=== PATIENT | male | born 1955 | race Caucasian/White ===

== ENCOUNTER 2017-05-01 19:04 | Observation (INO) | payer MEDICAID ==
[~2017-05-01] VITALS: Ht 5954.8 cm; Wt 67.7 kg
[~2017-05-01 19:04] MED LIST: ALBU18HF2; BECL8.7A7; BISM-64 PO; CLON1TAB4 PO; CYCL-1 PO; DICY10CA88 PO; DIPH25CA83 PO; IBUP-1986 PO; MELO-100 PO; MILK200C4 PO; ONDA8TAB9 PO; PANT-47 PO; PANT20TA3 PO; RIVA20TA
[2017-05-01 20:48] LABS: BASOPHILS # (AUTO) 0.1 X10'3 (0-0.2); BASOPHILS % (AUTO) 0.8 % (0-1); EOSINOPHILS % (AUTO) 0.7 % (0-6); HEMOGLOBIN 16.4 g/dl (14.0-17.9); LYMPHOCYTES # (AUTO) 2.9 X10'3 (1.1-4.8); LYMPHOCYTES % (AUTO) 41.6 % (21-51); MEAN CORPUSCULAR HEMOGLOBIN 31.2 PG (27.0-31.0); MEAN CORPUSCULAR HGB CONC 34.3 % (33.0-36.5); MEAN CORPUSCULAR VOLUME 91.1 FL (78-98); MEAN PLATELET VOLUME 6.8 FL (7.4-10.4); MONOCYTES # (AUTO) 0.5 X10'3 (0-0.9); MONOCYTES % (AUTO) 7.2 % (2-12); NEUTROPHILS # (AUTO) 3.4 X10'3 (1.8-7.7); NEUTROPHILS % (AUTO) 49.7 % (42-75); PLATELET COUNT 216 X10'3 (140-440); RED BLOOD COUNT 5.27 X10'6 (4.70-6.10); RED CELL DISTRIBUTION WIDTH 14.8 % (11.5-14.5); WHITE BLOOD COUNT 6.9 X10'3 (4.5-11.0)
[2017-05-01 21:01] LABS: INR 1.1 INR; PARTIAL THROMBOPLASTIN TIME 26 SECONDS (22-32); PROTHROMBIN TIME 11.1 SECONDS (9.0-12.0)
[2017-05-01 21:06] LABS: ALANINE AMINOTRANSFERASE 24 U/L (12-78); ALBUMIN 3.9 G/DL (3.4-5.0); ALBUMIN/GLOBULIN RATIO 1.1 (1.1-1.5); ALKALINE PHOSPHATASE 114 IU/L (46-116); ANION GAP 11 (8-16); ASPARTATE AMINO TRANSFERASE 23 U/L (10-37); BILIRUBIN,TOTAL 0.8 MG/DL (0.1-1.0); BLOOD UREA NITROGEN 10 MG/DL (7-18); BUN/CREATININE RATIO 10.6 (5.4-32.0); CHLORIDE 107 MMOL/L (99-107); CREATININE 0.94 MG/DL (0.60-1.10); ETHANOL < 0.010 GM/DL (0.0-0.010); GLUCOSE 104 MG/DL (70-104); MAGNESIUM 2.3 MG/DL (1.5-2.4); POTASSIUM 3.2 MMOL/L (3.5-5.1); SODIUM 144 MMOL/L (135-145); TOTAL CARBON DIOXIDE 25.6 MMOL/L (24-32); TOTAL PROTEIN 7.5 G/DL (6.4-8.2); eGFR 81 ML/MIN
[2017-05-01] MEDS ORDERED: morphine 4 MG/ML inj SYRINge IV ONE ×4 (21:30→22:25)
[2017-05-01 21:55] LABS: CLARITY,URINE CLEAR (Clear); COLOR,URINE AMBER (Yellow); GLUCOSE, URINE NEGATIVE (Neg); KETONES,URINE TRACE mg/dl (Neg); LEUKOCYTE ESTERASE ,URINE NEGATIVE (Neg); NITRITES, URINE NEGATIVE (Neg); OCCULT BLOOD,URINE NEGATIVE (Neg); PROTEIN,URINE NEGATIVE (Neg)
[2017-05-01 21:56] LABS: UA COLLECTION TYPE CLN CATCH MIDSTREAM
[2017-05-01 22:05] LABS: URINE AMPHETAMINE SCREEN NEGATIVE (Neg); URINE BARBITUATE SCREEN NEGATIVE (Neg); URINE BENZODIAZEPINES SCREEN NEGATIVE (Neg); URINE CANNABINOID SCREEN NEGATIVE (Neg); URINE COCAINE SCREEN NEGATIVE (Neg); URINE METHADONE SCREEN NEGATIVE (Neg); URINE OPIATE SCREEN NEGATIVE (Neg); URINE PHENCYCLIDINE SCREEN NEGATIVE (Neg)
[2017-05-01] MEDS ORDERED: potassium Cl 20 mEq SR tablet PO ONE (23:40)
[2017-05-02] MEDS ORDERED: HYDR-3686 PO (00:50)
[2017-05-02] MEDS ORDERED: ESCI5TAB PO (00:50)
[2017-05-02] MEDS ORDERED: clonazePAM 1mg tablet PO ONE (01:30)
[2017-05-02] MEDS ORDERED: ondansetron/PF 4mg/2ml inj IV PRN (02:10)
[2017-05-02] MEDS ORDERED: potassium Cl 20 mEq SR tablet PO PRN ×2 (02:10)
[2017-05-02] MEDS ORDERED: potassium Cl 40MEQ/NS 500ml 500 ML IV PRN ×2 (02:10)
[2017-05-02] MEDS ORDERED: acetaminophen 325mg tablet PO PRN (02:10)
[2017-05-02] MEDS ORDERED: HYDROcodone/acetaminophen 5mg/325mg tablet PO PRN (02:10)
[2017-05-02] MEDS ORDERED: cyclobenzaprine 10mg tablet PO STA (03:07)
[2017-05-02] MEDS: HYDROmorphone 2mg tablet PO PRN ×3 (03:12→14:53)
[2017-05-02] MEDS ORDERED: LORazepam 2 mg/ml vial IV ONE (04:55)
[2017-05-02] MEDS ORDERED: cyclobenzaprine 10mg tablet PO SCH (08:00)
[2017-05-02] MEDS ORDERED: K and/or MAG REPLACEMENT MC SCH (08:00)
[2017-05-02] MEDS ORDERED: CITALOpram 10mg tablet PO SCH (08:00)
[2017-05-02] MEDS ORDERED: pantoprazole 40mg Tablet.DR PO SCH (08:00)
[2017-05-02 08:36] LABS: BASOPHILS # (AUTO) 0.1 X10'3 (0-0.2); EOSINOPHILS # (AUTO) 0.1 X10'3 (0-0.9); EOSINOPHILS % (AUTO) 1.9 % (0-6); HEMATOCRIT 43.5 % (42.0-52.0); HEMOGLOBIN 15.2 g/dl (14.0-17.9); LYMPHOCYTES # (AUTO) 2.7 X10'3 (1.1-4.8); LYMPHOCYTES % (AUTO) 39.2 % (21-51); MEAN CORPUSCULAR HEMOGLOBIN 31.9 PG (27.0-31.0); MEAN CORPUSCULAR VOLUME 91.2 FL (78-98); MEAN PLATELET VOLUME 6.8 FL (7.4-10.4); MONOCYTES # (AUTO) 0.6 X10'3 (0-0.9); NEUTROPHILS # (AUTO) 3.5 X10'3 (1.8-7.7); NEUTROPHILS % (AUTO) 49.9 % (42-75); PLATELET COUNT 184 X10'3 (140-440); RED BLOOD COUNT 4.77 X10'6 (4.70-6.10); RED CELL DISTRIBUTION WIDTH 14.8 % (11.5-14.5)
[2017-05-02] MEDS: clonazePAM 1mg tablet PO SCH ×2 (08:41→14:40)
[2017-05-02 08:50] LABS: ALBUMIN 3.5 G/DL (3.4-5.0); ANION GAP 9 (8-16); BLOOD UREA NITROGEN 14 MG/DL (7-18); BUN/CREATININE RATIO 13.9 (5.4-32.0); CALCIUM 8.7 MG/DL (8.5-10.1); CHLORIDE 105 MMOL/L (99-107); CREATININE 1.01 MG/DL (0.60-1.10); GLUCOSE 102 MG/DL (70-104); POTASSIUM 3.4 MMOL/L (3.5-5.1); SODIUM 141 MMOL/L (135-145); TOTAL CARBON DIOXIDE 27.3 MMOL/L (24-32); eGFR 75 ML/MIN
[2017-05-02] MEDS ORDERED: atorvastatin 20mg tablet PO SCH (13:05)
[2017-05-02] MEDS ORDERED: aspirin 81mg tab.chew PO ONE (13:05)
[2017-05-02] MEDS ORDERED: morphine 4 MG/ML inj SYRINge IV ONE (16:35)
[2017-05-02 16:40] VITALS: BP 110/70
[2017-05-02] MEDS ORDERED: hydrOXYzine 25 MG tablet PO SCH (21:00)
== END 2017-05-02 16:40 | disposition short-term general hospital (02) ==
LOC: ER 19:05 → ED HOLD 05-02 02:09 → CANBEDREQ 05-02 13:36
PROVIDERS: ADMIT Family Medicine; ATTEND Family Medicine
DX: R55 Syncope and collapse (principal); E87.6 Hypokalemia; J44.9 Chronic obstructive pulmonary disease, unspecified; K21.9 Gastro-esophageal reflux disease without esophagitis; M81.0 Age-related osteoporosis without current pathological fracture; K58.9 Irritable bowel syndrome, unspecified; I35.1 Nonrheumatic aortic (valve) insufficiency; M54.2 Cervicalgia; Z86.711 Personal history of pulmonary embolism; Z86.718 Personal history of other venous thrombosis and embolism; Z87.891 Personal history of nicotine dependence; Z98.1 Arthrodesis status; Z86.59 Personal history of other mental and behavioral disorders; Z86.19 Personal history of other infectious and parasitic diseases
CPT/HCPCS: 36415; 70450; 70544; 70551; 71045; 72125; 72141; 80048; 80053; 80305; 80320; 81003; 83735; 84484; 85025; 85610; 85730; 93306; 96374; 96375; 96376; 99285; G0378; J2060; J2270; J2405; L0172

== ENCOUNTER 2017-05-30 12:46 | Emergency (ER) | payer MEDICAID ==
[~2017-05-30] VITALS: Ht 180.3 cm; Wt 67.3 kg
[~2017-05-30 12:46] MED LIST changes: -ALBU18HF2; -BECL8.7A7; -DICY10CA88 PO; +ESCI5TAB PO; +HYDR-3686 PO; -PANT20TA3 PO; -RIVA20TA
[2017-05-30] MEDS ORDERED: normal saline 1000ML IV soln IVB ONE (12:50)
[2017-05-30 13:37] LABS: BASOPHILS # (AUTO) 0.1 X10'3 (0-0.2); BASOPHILS % (AUTO) 0.6 % (0-1); EOSINOPHILS # (AUTO) 0.1 X10'3 (0-0.9); EOSINOPHILS % (AUTO) 0.7 % (0-6); HEMATOCRIT 50.5 % (42.0-52.0); LYMPHOCYTES # (AUTO) 2.7 X10'3 (1.1-4.8); LYMPHOCYTES % (AUTO) 27.9 % (21-51); MEAN CORPUSCULAR HEMOGLOBIN 31.2 PG (27.0-31.0); MEAN CORPUSCULAR HGB CONC 33.6 % (33.0-36.5); MEAN CORPUSCULAR VOLUME 92.7 FL (78-98); MEAN PLATELET VOLUME 7.2 FL (7.4-10.4); MONOCYTES # (AUTO) 0.7 X10'3 (0-0.9); MONOCYTES % (AUTO) 7.6 % (2-12); NEUTROPHILS % (AUTO) 63.2 % (42-75); PLATELET COUNT 178 X10'3 (140-440); RED BLOOD COUNT 5.46 X10'6 (4.70-6.10); WHITE BLOOD COUNT 9.5 X10'3 (4.5-11.0)
[2017-05-30 13:45] LABS: ALANINE AMINOTRANSFERASE 25 U/L (12-78); ALBUMIN 3.9 G/DL (3.4-5.0); ALBUMIN/GLOBULIN RATIO 1.1 (1.1-1.5); ALKALINE PHOSPHATASE 115 IU/L (46-116); ANION GAP 14 (8-16); ASPARTATE AMINO TRANSFERASE 21 U/L (10-37); BILIRUBIN,TOTAL 0.9 MG/DL (0.1-1.0); BLOOD UREA NITROGEN 9 MG/DL (7-18); CALCIUM 9.1 MG/DL (8.5-10.1); CHLORIDE 104 MMOL/L (99-107); ETHANOL < 0.010 GM/DL (0.0-0.010); GLUCOSE 135 MG/DL (70-104); POTASSIUM 3.4 MMOL/L (3.5-5.1); SODIUM 140 MMOL/L (135-145); TOTAL PROTEIN 7.6 G/DL (6.4-8.2); eGFR 86 ML/MIN
[2017-05-30] MEDS ORDERED: cyclobenzaprine 10mg tablet PO ONE (13:50)
[2017-05-30] MEDS ORDERED: oxyCODONE/APAP 10/325mg tablet PO ONE (13:50)
[2017-05-30 14:11] VITALS: BP 106/88
== END 2017-05-30 14:22 | disposition home or self-care (01) ==
LOC: ER 12:48
DX: E86.0 Dehydration (principal); R55 Syncope and collapse; F11.10 Opioid abuse, uncomplicated; R10.9 Unspecified abdominal pain; Z88.5 Allergy status to narcotic agent; Z88.8 Allergy status to other drugs, medicaments and biological substances; Z79.899 Other long term (current) drug therapy; J44.9 Chronic obstructive pulmonary disease, unspecified; G89.29 Other chronic pain; M19.90 Unspecified osteoarthritis, unspecified site; Z98.890 Other specified postprocedural states
CPT/HCPCS: 36415; 71045; 80053; 80320; 84443; 85025; 93005; 96360; 99285; J7030

== ENCOUNTER 2017-09-24 12:10 | Emergency (ER) | payer MEDICAID ==
[~2017-09-24] VITALS: Ht 182.9 cm; Wt 57.0 kg
[~2017-09-24 12:10] MED LIST changes: +CLON-371 PO; -CLON1TAB4 PO
[2017-09-24] MEDS ORDERED: ketorolac trometh inj. 60 MG/2 ML VIAL IM ONE (13:00)
[2017-09-24] MEDS ORDERED: IBUP-1984 PO (13:02)
[2017-09-24 13:37] VITALS: BP 125/68
== END 2017-09-24 13:45 | disposition home or self-care (01) ==
LOC: ER 12:11
DX: G89.29 Other chronic pain (principal); M54.2 Cervicalgia; R51 Headache; F41.9 Anxiety disorder, unspecified; J44.9 Chronic obstructive pulmonary disease, unspecified; M19.90 Unspecified osteoarthritis, unspecified site; Z86.711 Personal history of pulmonary embolism; Z86.718 Personal history of other venous thrombosis and embolism; Z88.5 Allergy status to narcotic agent; Z88.8 Allergy status to other drugs, medicaments and biological substances; Z86.19 Personal history of other infectious and parasitic diseases
CPT/HCPCS: 96372; 99283; J1885

== ENCOUNTER → 2017-12-20 | Emergency (ER) | payer MEDICAID ==
[~2017-12-20] VITALS: Ht 182.9 cm; Wt 75.0 kg
[2017-12-20 00:48] VITALS: BP 102/60
== END | disposition left against medical advice (07) ==
LOC: ER 00:37
DX: M54.2 Cervicalgia (principal); R51 Headache; Z53.21 Procedure and treatment not carried out due to patient leaving prior to being seen by health care provider

== ENCOUNTER 2018-03-03 16:56 | Emergency (ER) | payer MEDICAID, OTHER ==
[~2018-03-03] VITALS: Ht 182.9 cm; Wt 78.0 kg
[2018-03-03] MEDS ORDERED: morphine 4 MG/ML inj SYRINge IM ONE ×2 (17:55→19:55)
[2018-03-03] MEDS ORDERED: ipratropium/albuterol 3ml nebule NEB ONE (17:55)
[2018-03-03 18:33] LABS: BASOPHILS % (AUTO) 0.7 % (0-1); EOSINOPHILS # (AUTO) 0.2 X10'3 (0-0.9); HEMOGLOBIN 14.2 g/dl (14.0-17.9); LYMPHOCYTES # (AUTO) 2.6 X10'3 (1.1-4.8); LYMPHOCYTES % (AUTO) 42.7 % (21-51); MEAN CORPUSCULAR HEMOGLOBIN 33.6 PG (27.0-31.0); MEAN CORPUSCULAR HGB CONC 34.6 % (33.0-36.5); MEAN CORPUSCULAR VOLUME 97.3 FL (78-98); MEAN PLATELET VOLUME 7.6 FL (7.4-10.4); MONOCYTES # (AUTO) 0.7 X10'3 (0-0.9); MONOCYTES % (AUTO) 11.5 % (2-12); NEUTROPHILS # (AUTO) 2.6 X10'3 (1.8-7.7); NEUTROPHILS % (AUTO) 42.1 % (42-75); PLATELET COUNT 122 X10'3 (140-440); RED BLOOD COUNT 4.22 X10'6 (4.70-6.10); RED CELL DISTRIBUTION WIDTH 14.2 % (11.5-14.5); WHITE BLOOD COUNT 6.1 X10'3 (4.5-11.0)
[2018-03-03 18:40] LABS: ALANINE AMINOTRANSFERASE 18 U/L (12-78); ALBUMIN 3.4 G/DL (3.4-5.0); ALBUMIN/GLOBULIN RATIO 1.1 (1.1-1.5); ALKALINE PHOSPHATASE 142 IU/L (46-116); ANION GAP 10 (8-16); ASPARTATE AMINO TRANSFERASE 21 U/L (10-37); BILIRUBIN,TOTAL 0.3 MG/DL (0.1-1.0); BLOOD UREA NITROGEN 9 MG/DL (7-18); BUN/CREATININE RATIO 9.7 (5.4-32.0); CHLORIDE 110 MMOL/L (99-107); CREATININE 0.93 MG/DL (0.60-1.10); GLUCOSE 83 MG/DL (70-104); POTASSIUM 3.4 MMOL/L (3.5-5.1); SODIUM 146 MMOL/L (135-145); TOTAL CARBON DIOXIDE 26.5 MMOL/L (24-32); TOTAL PROTEIN 6.5 G/DL (6.4-8.2); eGFR 82 ML/MIN
[2018-03-03 18:41] LABS: ETHANOL < 0.010 GM/DL (0.0-0.010)
[2018-03-03] MEDS ORDERED: HYDROcodone/acetaminophen 10/325mg tab PO ONE (19:30)
--- NOTE | 2018-03-03 19:30 | NUR ---
Pt c/o 11/16 pain, chronic. notified. Med rec addressed.
[2018-03-03] MEDS ORDERED: cyclobenzaprine 10mg tablet PO ONE (19:55)
[2018-03-03] MEDS: ketorolac tromethamine 15mg/ml inj. IM ONE ×2 (20:25→20:41)
--- NOTE | 2018-03-03 20:30 | NUR ---
Pt given sandwich, juice, applesauce. Consumed 100%
--- NOTE | 2018-03-03 23:30 | NUR ---
Pt tried to void in urinal and missed, wetting his clothes, bedding. Pt given dry sheets and clothes. Urine collected for UA. PT now resting quietly.
[2018-03-04 00:08] LABS: URINE AMPHETAMINE SCREEN NEGATIVE (Neg); URINE BARBITUATE SCREEN NEGATIVE (Neg); URINE BENZODIAZEPINES SCREEN POSITIVE (Neg); URINE CANNABINOID SCREEN NEGATIVE (Neg); URINE COCAINE SCREEN NEGATIVE (Neg); URINE METHADONE SCREEN NEGATIVE (Neg); URINE OPIATE SCREEN POSITIVE (Neg); URINE PHENCYCLIDINE SCREEN NEGATIVE (Neg)
--- NOTE | 2018-03-04 01:30 | NUR ---
Pl sleeping in bed on his back. Respirations even and unlabored.
--- NOTE | 2018-03-04 02:00 | NUR ---
Pt request for medications for pain. SOC consult initiated
--- NOTE | 2018-03-04 03:15 | NUR ---
Pl sleeping in bed on his back. Respirations even and unlabored.
--- NOTE | 2018-03-04 04:30 | NUR ---
Pt again made request for 'pain shot'. Reoriented him to medications available for pain
--- NOTE | 2018-03-04 05:34 | NUR ---
Pt talking to SOC MD. Pt another request for 'pain shot'. Pt again told that Motrin or Tylenol was available.
--- NOTE | 2018-03-04 07:12 | NUR ---
PT CO BACK PAIN, ASKING FOR PAIN MEDS. DR OFFERED ACETAMINOPHEN, PT DECLINED SAYING HE CANNOT TAKE "FILLERS."
[2018-03-04] MEDS ORDERED: CYCL10TA26 PO (07:32)
[2018-03-04] MEDS ORDERED: PANT40SU2 PO (07:32)
[2018-03-04] MEDS ORDERED: bismuth subsalicylate 262mg chew tablet PO PRN (07:45)
[2018-03-04] MEDS: clonazePAM 1mg tablet PO SCH ×4 (08:19→20:18)
[2018-03-04] MEDS: CITALOpram 10mg tablet PO SCH (08:19)
--- NOTE | 2018-03-04 09:35 | NUR ---
pt ate breakfast and asked for more food. pt is pleasant and cooperative.
[2018-03-04] MEDS: cyclobenzaprine 10mg tablet PO PRN ×2 (12:44→20:18)
--- NOTE | 2018-03-04 12:59 | NUR ---
pt co pain in back and neck, requesting pain meds stronger than tylenol. pt was given snacks, pt appreciative, cooperative, pleasant.
[2018-03-04] MEDS ORDERED: acetaminophen 325mg tablet PO ONE (13:25)
--- NOTE | 2018-03-04 13:42 | NUR ---
AMBULATORY TO ER #[id number] OVERFLOW-ACCOMPANIED BY SECURITY AND RN. REPORT FROM TYLER VILLALBA. PATIENT MADE SUICIDE ATTEMPT VIA ASPHYXIATION PRIOR TO ARRIVAL. ALERT AND COOPERATIVE. C/O CHRONIC BACK PAIN AND WAS MEDICATED EARLIER WITH TYLENOL.
--- NOTE | 2018-03-04 18:30 | NUR ---
Report rec'd, care assumed. Patient is sitting up eating dinner.
--- NOTE | 2018-03-04 19:23 | NUR ---
Laying in bed, awake, denies needs currently. Will continue to monitor.
[2018-03-04] MEDS: HYDROcodone/acetaminophen 5mg/325mg tablet PO PRN (20:18)
[2018-03-04] MEDS: hydrOXYzine 25 MG tablet PO SCH (20:18)
[2018-03-04] MEDS ORDERED: nicotine 7mg patch - 24hr TD ONE (20:20)
--- NOTE | 2018-03-04 20:21 | NUR ---
Pt requesting nicotine patch, ERP informed, orders rec'd.
--- NOTE | 2018-03-04 21:04 | NUR ---
Up to BRP, requesting analgesic, informed that he just rec'd one, states satisfaction with that, assisted with non-medication modalities to help with pain relief
--- NOTE | 2018-03-04 22:10 | NUR ---
Resting in bed with eyes closed, appearing to sleep without new concerns or issues. Will continue to monitor.
--- NOTE | 2018-03-04 22:24 | NUR ---
Awoke with diaphoresis and "dizziness", accu check 136...spoke with patient regarding this appear most likely associated with nicotine patch, especially considering the very little patient admits to smokeing. Patient agrees, and patch removed.
--- NOTE | 2018-03-04 22:39 | NUR ---
Rec'd call from [facility] in [place], questions answered. [facility] and will call fro updates as they come.
--- NOTE | 2018-03-04 23:09 | NUR ---
Resting in bed with eyes closed, appearing to sleep without new concerns or issues. Will continue to monitor.
--- NOTE | 2018-03-05 00:44 | NUR ---
Resting in bed, eyes closed, appearing to sleep. No new issues or concerns noted. Will continue to monitor for changes.
--- NOTE | 2018-03-05 01:35 | NUR ---
Appearing to sleep, in bed with eyes closed, resp are even and unlabored. No new concerns or issues noted, will continue to monitor.
--- NOTE | 2018-03-05 02:19 | NUR ---
Appearing to sleep, in bed with eyes closed, resp are even and unlabored. No new concerns or issues noted, will continue to monitor.
--- NOTE | 2018-03-05 03:59 | NUR ---
Up to BRP, no needs voiced, back to bed without issues. Will continue to monitor.
--- NOTE | 2018-03-05 07:04 | NUR ---
Assumed care, report received from Steven. Patient up to the bathroom. Now lying awake in bed. No distress noted.
[2018-03-05] MEDS: CITALOpram 10mg tablet PO SCH (07:53)
[2018-03-05] MEDS: pantoprazole 40mg Tablet.DR PO SCH (07:53)
[2018-03-05] MEDS: clonazePAM 1mg tablet PO SCH ×4 (07:53→21:20)
[2018-03-05] MEDS: nicotine 7mg patch - 24hr TD SCH (07:54)
[2018-03-05] MEDS: HYDROcodone/acetaminophen 5mg/325mg tablet PO PRN ×3 (08:28→21:22)
[2018-03-05] MEDS: cyclobenzaprine 10mg tablet PO PRN (08:28)
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
--- NOTE | 2018-03-05 13:57 | NUR ---
Patient complaining of pain. Requesting oxycontin. Notified he would be getting Cabins 5/325 q6h. Talking with friend on the phone. Overheard him state that he is having visual hallucinations, but denied to RN earlier.
--- NOTE | 2018-03-05 16:12 | NUR ---
Patient sleeping comfortably in bed. No S/S of distress.
--- NOTE | 2018-03-05 19:30 | NUR ---
Patient is awake, medication compliant. He denies S/I at this time. Patient states recent stress with family. Attempt at S/I by CO poisoning in garage with car running. Patient had garage door shut, he didn't pipe exhaust into car. Patient awoke, felt hungry, went to kitchen and ate. Patient felt regret about suicide attempt and went to [facility] He was transfered here for eval and placement.
[2018-03-05] MEDS: hydrOXYzine 25 MG tablet PO SCH (21:20)
--- NOTE | 2018-03-06 04:30 | NUR ---
This patient was up to the bathroom. He ambulates without problem. No distress.
--- NOTE | 2018-03-06 07:54 | NUR ---
Rec call from [facility], they are full and unable to accept patient. Malini carvajal made aware.
[2018-03-06] MEDS: clonazePAM 1mg tablet PO SCH ×4 (08:16→20:51)
[2018-03-06] MEDS: pantoprazole 40mg Tablet.DR PO SCH (08:16)
[2018-03-06] MEDS: nicotine 7mg patch - 24hr TD SCH (08:16)
[2018-03-06] MEDS: CITALOpram 10mg tablet PO SCH (08:17)
[2018-03-06] MEDS: HYDROcodone/acetaminophen 5mg/325mg tablet PO PRN ×3 (08:21→19:39)
[2018-03-06] MEDS: lactobacillus rhamnosus 10,000 MMU CELLS/CAPSULE PO SCH (20:51)
[2018-03-06] MEDS: hydrOXYzine 25 MG tablet PO SCH (20:52)
[2018-03-06] MEDS ORDERED: polyethylene glycol 3350 17gm powd pack PO PRN (22:00)
--- NOTE | 2018-03-07 06:00 | NUR ---
Awake at change of shift. States he is in pain in his arm, neck and back. Requested pain medication. Given [place] and Flexeril as ordered.
[2018-03-07] MEDS: cyclobenzaprine 10mg tablet PO PRN ×2 (06:31→16:52)
[2018-03-07] MEDS: pantoprazole 40mg Tablet.DR PO SCH (06:31)
[2018-03-07] MEDS: HYDROcodone/acetaminophen 5mg/325mg tablet PO PRN ×3 (06:32→16:52)
[2018-03-07] MEDS: lactobacillus rhamnosus 10,000 MMU CELLS/CAPSULE PO SCH (07:16)
[2018-03-07] MEDS: clonazePAM 1mg tablet PO SCH ×3 (07:16→16:52)
[2018-03-07] MEDS: CITALOpram 10mg tablet PO SCH (07:18)
[2018-03-07] MEDS: nicotine 7mg patch - 24hr TD SCH (08:00)
--- NOTE | 2018-03-07 08:30 | NUR ---
Served breakfast. Ate 100% of his meal. Asked for seconds. Provided with additional food. Up ad luan to the bathroom. Gait steady.
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
--- NOTE | 2018-03-07 16:30 | NUR ---
Call received from [facility]. Patient has been accepted by [facility]. Rig Mechanic will be here at approximately 1700. Patient informed and delighted with this information. Patient called his family and notified them of his move to [place].
--- NOTE | 2018-03-07 17:40 | NUR ---
Stockroom Supervisor from [facility] here to lease picker patient and transport him to [facility].
[2018-03-07 18:14] VITALS: BP 127/80
== END 2018-03-07 17:40 ==
LOC: ER 16:56
DX: R45.851 Suicidal ideations (principal); J44.9 Chronic obstructive pulmonary disease, unspecified; F41.9 Anxiety disorder, unspecified; Z86.69 Personal history of other diseases of the nervous system and sense organs; Z86.711 Personal history of pulmonary embolism; Z86.19 Personal history of other infectious and parasitic diseases; Z86.718 Personal history of other venous thrombosis and embolism; Z98.890 Other specified postprocedural states; Z88.5 Allergy status to narcotic agent; Z88.8 Allergy status to other drugs, medicaments and biological substances; Z79.899 Other long term (current) drug therapy
CPT/HCPCS: 36415; 71045; 80053; 80305; 80320; 82948; 85025; 94640; 94760; 96372; 99285; J1885; J2270; Q0177

== ENCOUNTER 2018-03-31 18:37 | Emergency (ER) | payer MEDICAID, OTHER ==
[~2018-03-31] VITALS: Ht 179.1 cm; Wt 70.0 kg
[~2018-03-31 18:37] MED LIST changes: -CYCL-1 PO; +CYCL10TA26 PO; -DIPH25CA83 PO; -IBUP-1986 PO; -MELO-100 PO; -MILK200C4 PO; -ONDA8TAB9 PO; -PANT-47 PO; +PANT40SU2 PO
[2018-03-31 20:35] LABS: BASOPHILS % (AUTO) 0.5 % (0-1); EOSINOPHILS % (AUTO) 0.4 % (0-6); HEMATOCRIT 49.3 % (42.0-52.0); HEMOGLOBIN 17.1 g/dl (14.0-17.9); LYMPHOCYTES # (AUTO) 1.8 X10'3 (1.1-4.8); LYMPHOCYTES % (AUTO) 28.4 % (21-51); MEAN CORPUSCULAR HEMOGLOBIN 33.2 PG (27.0-31.0); MEAN CORPUSCULAR HGB CONC 34.7 g/dL (33.0-36.5); MEAN CORPUSCULAR VOLUME 95.6 FL (78-98); MEAN PLATELET VOLUME 7.2 FL (7.4-10.4); MONOCYTES # (AUTO) 0.8 X10'3 (0-0.9); MONOCYTES % (AUTO) 11.8 % (2-12); NEUTROPHILS # (AUTO) 3.8 X10'3 (1.8-7.7); NEUTROPHILS % (AUTO) 58.9 % (42-75); PLATELET COUNT 165 X10'3 (140-440); RED BLOOD COUNT 5.16 X10'6 (4.70-6.10); RED CELL DISTRIBUTION WIDTH 13.5 % (11.5-14.5); WHITE BLOOD COUNT 6.4 X10'3 (4.5-11.0)
[2018-03-31 20:43] LABS: ALANINE AMINOTRANSFERASE 27 U/L (12-78); ALBUMIN 4.1 G/DL (3.4-5.0); ALBUMIN/GLOBULIN RATIO 1.1 (1.1-1.5); ALKALINE PHOSPHATASE 104 IU/L (46-116); ANION GAP 10 (8-16); ASPARTATE AMINO TRANSFERASE 35 U/L (10-37); BLOOD UREA NITROGEN 11 MG/DL (7-18); BUN/CREATININE RATIO 12.8 (5.4-32.0); CHLORIDE 104 MMOL/L (99-107); CREATININE 0.86 MG/DL (0.60-1.10); GLUCOSE 117 MG/DL (70-104); POTASSIUM 3.1 MMOL/L (3.5-5.1); SODIUM 141 MMOL/L (135-145); TOTAL CARBON DIOXIDE 26.8 MMOL/L (24-32); TOTAL PROTEIN 7.8 G/DL (6.4-8.2); eGFR 90 ML/MIN
[2018-03-31 20:48] LABS: ETHANOL < 0.010 GM/DL (0.0-0.010)
[2018-03-31] MEDS ORDERED: potassium chloride 10mEq CAPSULE.SA PO SCH (22:30)
[2018-03-31] MEDS: potassium chloride 10mEq ER tablet PO SCH (22:38)
[2018-04-01 00:22] LABS: URINE AMPHETAMINE SCREEN NEGATIVE (Neg); URINE BARBITUATE SCREEN NEGATIVE (Neg); URINE BENZODIAZEPINES SCREEN NEGATIVE (Neg); URINE CANNABINOID SCREEN POSITIVE (Neg); URINE COCAINE SCREEN NEGATIVE (Neg); URINE METHADONE SCREEN NEGATIVE (Neg); URINE OPIATE SCREEN POSITIVE (Neg); URINE PHENCYCLIDINE SCREEN NEGATIVE (Neg)
[2018-04-01] MEDS ORDERED: cyclobenzaprine 10mg tablet PO ONE (00:25)
[2018-04-01] MEDS ORDERED: hydrOXYzine 25 MG tablet PO ONE (00:25)
[2018-04-01] MEDS ORDERED: clonazePAM 1mg tablet PO ONE ×2 (00:25→12:40)
--- NOTE | 2018-04-01 06:11 | NUR ---
FAXED PACKET TO [facility]
--- NOTE | 2018-04-01 09:00 | NUR ---
PT REFUSED TO TAKE MEDICATION FROM BOX OFFICE MANAGER BUT DID TAKE IT FROM ANOTHER NURSE THAT IS MALE.
[2018-04-01] MEDS: citalopram 20mg tablet PO SCH (09:05)
--- NOTE | 2018-04-01 12:30 | NUR ---
PT HAD A YELLING OUTBURST WITH HYDROSTATIC TUBING TESTER. STATED THAT HYDROSTATIC TUBING TESTER HAS NOT BEEN IN TO SEE HIM NOT ONCE. ATTEMPTED TO TALK TO THE PT ABOUT HOW I WAS IN HIS ROOM EARLIER BUT HE INSISTED HYDROSTATIC TUBING TESTER WAS NOT. PT HAD INCREASED AGITATION AND WANTED HIS KLONOPIN TO HELP CALM HIM DOWN. MD ORDERED AND MED GIVEN. PT QUIETLY RESTING IN BED AFTERWARDS
--- NOTE | 2018-04-01 15:48 | NUR ---
PT RESTING QUIETLY IN BED, NO SIGNS OF DISTRESS NOTED
--- NOTE | 2018-04-01 17:05 | NUR ---
PT RESTING QUIETLY IN BED, NO SIGNS OF DISTRESS NOTED.
[2018-04-01] MEDS ORDERED: traMADol 50MG tablet PO ONE (19:05)
[2018-04-01] MEDS ORDERED: bismuth subsalicylate 262mg chew tablet PO PRN (21:40)
[2018-04-01] MEDS: clonazePAM 1mg tablet PO SCH (21:50)
[2018-04-01] MEDS: hydrOXYzine 25 MG tablet PO SCH (21:50)
[2018-04-01] MEDS: potassium chloride 10mEq ER tablet PO SCH (22:35)
--- NOTE | 2018-04-01 23:00 | NUR ---
pt sleeping, rr 16 even and unlabored. no signs of any acute distress.
--- NOTE | 2018-04-02 02:00 | NUR ---
PT RESTING COMFORTABLY ON HIS BACK. NO SIGNS OF DISTRESS NOTED. WILL CONTINUE TO MONITOR.
--- NOTE | 2018-04-02 06:00 | NUR ---
PT RESTING COMFORTABLY ON HIS BACK. NO SIGNS OF DISTRESS NOTED. WILL CONTINUE TO MONITOR.
[2018-04-02] MEDS: pantoprazole 40mg Tablet.DR PO SCH (07:57)
[2018-04-02] MEDS: clonazePAM 1mg tablet PO SCH ×4 (07:58→20:17)
[2018-04-02] MEDS: citalopram 20mg tablet PO SCH (07:58)
[2018-04-02] MEDS ORDERED: traMADol 50MG tablet PO ONE (08:05)
--- NOTE | 2018-04-02 09:49 | NUR ---
Patient transferred from bed 14 to bed 25. Stable and resting.
[2018-04-02] MEDS: traMADol 50MG tablet PO PRN (15:16)
[2018-04-02] MEDS ORDERED: LORazepam 2 mg/ml vial ONE (18:21)
[2018-04-02] MEDS ORDERED: diphenhydrAMINE 50 mg/ml inj ONE (18:22)
[2018-04-02] MEDS ORDERED: haloperidol lactate 5mg/ml inj ONE (18:22)
--- NOTE | 2018-04-02 18:22 | NUR ---
Pt combative with staff and other pts. SAGAR Garcia verbalized new order for IM Haldol, Ativan and Benadryl.
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
[2018-04-02] MEDS ORDERED: LORazepam 2 mg/ml vial IM ONE (18:30)
[2018-04-02] MEDS ORDERED: haloperidol lactate 5mg/ml inj IM ONE ×2 (18:30)
[2018-04-02] MEDS ORDERED: diphenhydrAMINE 50 mg/ml inj IM ONE (18:30)
--- NOTE | 2018-04-02 18:35 | NUR ---
Patient report given to TYLER Lovell.
--- NOTE | 2018-04-02 19:05 | NUR ---
LLE restraint removed. Patient shows no signs of violent behavior as of now. Resting comfortably
--- NOTE | 2018-04-02 19:20 | NUR ---
RLE restraint removed; patient is calm and cooperative. No discomfort noted. Will continue to monitor.
--- NOTE | 2018-04-02 19:35 | NUR ---
LUE restraint removed; Patient following commands appropriately. Will continue to monitor
--- NOTE | 2018-04-02 19:50 | NUR ---
All restraints removed. Patient calm and cooperative; following commands appropriately. Denies shortness of breath, chest pain, or discomfort. Will continue to monitor.
--- NOTE | 2018-04-02 20:15 | NUR ---
Patient finished 100% of the food tray offered. Now resting comfortably.
[2018-04-02] MEDS: hydrOXYzine 25 MG tablet PO SCH (20:17)
[2018-04-02] MEDS: potassium chloride 10mEq ER tablet PO SCH (20:17)
--- NOTE | 2018-04-02 21:20 | NUR ---
Patient up to bathroom
--- NOTE | 2018-04-02 22:30 | NUR ---
Patient resting in bed, comfortably. In no apparent distress
--- NOTE | 2018-04-02 23:09 | NUR ---
Pt asleep on back. RR 13, even and unlabored. No apparent distress at this time.
--- NOTE | 2018-04-03 01:10 | NUR ---
Pt asleep on back. RR 12, even and unlabored. No apparent distress at this time.
--- NOTE | 2018-04-03 02:11 | NUR ---
Patient laying supine with eyes closed, 14 even and unlabored respirations.
--- NOTE | 2018-04-03 03:27 | NUR ---
Patient up to bathroom
[2018-04-03] MEDS: traMADol 50MG tablet PO PRN ×2 (03:28→16:23)
--- NOTE | 2018-04-03 04:54 | NUR ---
Patient laying supine with eyes closed, 16 even and uneven respirations. In no apparent distress.
--- NOTE | 2018-04-03 06:10 | NUR ---
Reported off to TYLER [place]. Patient resting comfortably
--- NOTE | 2018-04-03 06:32 | NUR ---
Assumed care of patient. Patient sleeping in bed, respirations even, no distress noted at this time.
[2018-04-03] MEDS: clonazePAM 1mg tablet PO SCH ×4 (08:05→21:39)
[2018-04-03] MEDS: citalopram 20mg tablet PO SCH (08:05)
[2018-04-03] MEDS: pantoprazole 40mg Tablet.DR PO SCH (08:05)
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
--- NOTE | 2018-04-03 08:39 | NUR ---
Patient ambulated to restroom with steady gait.
--- NOTE | 2018-04-03 10:06 | NUR ---
Patient continues to sleep in bed, respirations even, no distress or other needs at this time.
--- NOTE | 2018-04-03 10:43 | NUR ---
Patient bathing and bedding changed.
--- NOTE | 2018-04-03 12:07 | NUR ---
Patient lying in bed, used phone per request. Patient now resting in bed with eyes closed, respirations even. No need at this time.
--- NOTE | 2018-04-03 14:46 | NUR ---
Patient sleeping in bed, respirations even, no distress noted.
--- NOTE | 2018-04-03 17:02 | NUR ---
Patient resting in bed, no needs at this time.
--- NOTE | 2018-04-03 19:10 | NUR ---
Patient resting calmly in bed. Patient reports continued feelings of depression and wanting to harm himself. He states he would put a fire pit in the bedroom of his home and asphyxiate himself. Patient updated on POC.
--- NOTE | 2018-04-03 20:45 | NUR ---
Patient requesting to ambulate in front of the nurses station. Patient evaluated for signs of increasing anxiety and he appears calm. Patient states he just wants to get up and stretch his legs. Patient instructed to stay in front of nurses station where he can be seen and he is agreeable.
[2018-04-03] MEDS: hydrOXYzine 25 MG tablet PO SCH (21:39)
[2018-04-03] MEDS: potassium chloride 10mEq ER tablet PO SCH (21:39)
--- NOTE | 2018-04-03 22:37 | NUR ---
Patient sleeping in a supine position.
--- NOTE | 2018-04-03 23:22 | NUR ---
Patient up to restroom and back to bed.
--- NOTE | 2018-04-04 01:15 | NUR ---
PER RN GAGAN Moe [facility] STATED PATIENT INFO HAS BEEN FAXED TO [facility] AND IS MOST LIKELY TO ACCEPT AN INPATIENT THIS A.M.
--- NOTE | 2018-04-04 01:17 | NUR ---
PATIENT LYING ON RIGHT SIDE WITH COVERS ON IN BED EYES CLOSED RR EVEN UN LABORED NO OBSERVABLE S/S OF ACUTE STRESS AT THIS TIME
--- NOTE | 2018-04-04 02:56 | NUR ---
PATIENT AWAKE AND UP TO USE THE RESTROOM AND BACK IN BED NO OBSERVABLE S/S OF ACUTE STRESS AT THIS TIME
--- NOTE | 2018-04-04 03:14 | NUR ---
PATIENT BACK IN BED FROM REST ROOM COVERS ON EYS CLOSED LYING SUPINE RR EVEN UN LABORED NO OBSERVABLE S/S OF ACUTE STRESS AT THIS TIME
--- NOTE | 2018-04-04 05:15 | NUR ---
PATIENTLYING ON LEFT SIDE IN BED EYES CLOSED COVERS ON RR EVEN UN LABORED NO OBSERVABLE S/S OF ACUTE STRESS AT THIS TIME
[2018-04-04 06:01] VITALS: BP 111/58
[2018-04-04] MEDS: pantoprazole 40mg Tablet.DR PO SCH (07:45)
[2018-04-04] MEDS: clonazePAM 1mg tablet PO SCH ×2 (07:45→13:05)
[2018-04-04] MEDS: citalopram 20mg tablet PO SCH (07:45)
[2018-04-04] MEDS: traMADol 50MG tablet PO PRN (14:15)
--- NOTE | 2018-04-04 14:58 | NUR ---
DC TO [facility] FOR TRANSFER TO [facility]
--- NOTE | 2018-04-04 15:00 | NUR ---
PERSONAL BELONGINGS REVIEWED WITH PATIENT AND SENT WITH HIM
== END 2018-04-04 15:12 ==
LOC: ER 18:37
DX: R45.851 Suicidal ideations (principal); R09.89 Other specified symptoms and signs involving the circulatory and respiratory systems; R10.9 Unspecified abdominal pain; R50.9 Fever, unspecified; R05 Cough; R14.0 Abdominal distension (gaseous); J44.9 Chronic obstructive pulmonary disease, unspecified; Z86.718 Personal history of other venous thrombosis and embolism; G89.29 Other chronic pain; M19.90 Unspecified osteoarthritis, unspecified site; F41.9 Anxiety disorder, unspecified; F31.9 Bipolar disorder, unspecified; F20.9 Schizophrenia, unspecified; Z98.890 Other specified postprocedural states; Z88.5 Allergy status to narcotic agent; Z88.6 Allergy status to analgesic agent; Z88.8 Allergy status to other drugs, medicaments and biological substances; Z79.899 Other long term (current) drug therapy
CPT/HCPCS: 36415; 71045; 80053; 80305; 80320; 84132; 85025; 99285; Q0177

== ENCOUNTER 2018-09-07 16:47 | Emergency (ER) | payer MEDICAID, OTHER ==
[~2018-09-07] VITALS: Ht 185.4 cm; Wt 80.0 kg
--- NOTE | 2018-09-07 17:13 | NUR ---
pT STATES i FEEL LIKE I AM SOMEWHAT SUICIDAL BUT i DON'T WANT TO . pT ACKNOWLEDGES HEARING VOICES.
[2018-09-07 17:54] LABS: BASOPHILS # (AUTO) 0.1 X10'3 (0-0.2); BASOPHILS % (AUTO) 0.8 % (0-1); EOSINOPHILS # (AUTO) 0.2 X10'3 (0-0.9); EOSINOPHILS % (AUTO) 2.3 % (0-6); HEMATOCRIT 37.1 % (42.0-52.0); HEMOGLOBIN 12.7 g/dl (14.0-17.9); LYMPHOCYTES # (AUTO) 2.1 X10'3 (1.1-4.8); LYMPHOCYTES % (AUTO) 29.1 % (21-51); MEAN CORPUSCULAR HEMOGLOBIN 33.2 PG (27.0-31.0); MEAN CORPUSCULAR HGB CONC 34.4 g/dL (33.0-36.5); MEAN CORPUSCULAR VOLUME 96.7 FL (78-98); MEAN PLATELET VOLUME 6.8 FL (7.4-10.4); MONOCYTES # (AUTO) 0.8 X10'3 (0-0.9); MONOCYTES % (AUTO) 11.3 % (2-12); NEUTROPHILS % (AUTO) 56.5 % (42-75); PLATELET COUNT 250 X10'3 (140-440); RED BLOOD COUNT 3.83 X10'6 (4.70-6.10); RED CELL DISTRIBUTION WIDTH 14.2 % (11.5-14.5); WHITE BLOOD COUNT 7.1 X10'3 (4.5-11.0)
[2018-09-07 18:03] LABS: ALANINE AMINOTRANSFERASE 32 U/L (12-78); ALBUMIN 3.5 G/DL (3.4-5.0); ALBUMIN/GLOBULIN RATIO 0.9 (1.1-1.5); ALKALINE PHOSPHATASE 109 IU/L (46-116); ANION GAP 6 (8-16); ASPARTATE AMINO TRANSFERASE 28 U/L (10-37); BILIRUBIN,TOTAL 0.7 MG/DL (0.1-1.0); BLOOD UREA NITROGEN 14 MG/DL (7-18); BUN/CREATININE RATIO 13.2 (5.4-32.0); CALCIUM 8.9 MG/DL (8.5-10.1); CHLORIDE 107 MMOL/L (99-107); CREATININE 1.06 MG/DL (0.60-1.10); GLUCOSE 88 MG/DL (70-104); POTASSIUM 3.8 MMOL/L (3.5-5.1); SODIUM 144 MMOL/L (135-145); TOTAL CARBON DIOXIDE 30.7 MMOL/L (24-32); TOTAL PROTEIN 7.3 G/DL (6.4-8.2); eGFR 70 ML/MIN
[2018-09-07 18:12] LABS: ETHANOL < 0.010 GM/DL (0.0-0.010)
[2018-09-07 18:14] LABS: ACETAMINOPHEN < 2.0 UG/ML (10-30)
--- NOTE | 2018-09-07 18:50 | NUR ---
PT RESTING COMFORTLY , ENCOURAGE TO VOID , ALL VSS , SITTER IN HALLWAY
--- NOTE | 2018-09-07 18:58 | NUR ---
PT ENCOURAGED TO VOID AND HAS URINAL AT BEDSIDE. HE IS GIVEN LARGE PITCHER OF WATER WELL 2 JUICE BOXES AND A CHEESE STICK.
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
--- NOTE | 2018-09-07 19:56 | NUR ---
pt again encouraged to void. He hasn't hardly drank any of the water provided to him. Straw placed to pts mouth and he will drink when someone holds the cup for him.
[2018-09-07 20:41] LABS: CLARITY,URINE CLEAR (Clear); COLOR,URINE YELLOW (Yellow); GLUCOSE, URINE NEGATIVE (Neg); KETONES,URINE NEGATIVE (Neg); LEUKOCYTE ESTERASE ,URINE NEGATIVE (Neg); NITRITES, URINE NEGATIVE (Neg); OCCULT BLOOD,URINE NEGATIVE (Neg); PH,URINE 5.5 (4.8-8.0); PROTEIN,URINE NEGATIVE (Neg)
[2018-09-07 20:46] LABS: UA COLLECTION TYPE VOIDED
--- NOTE | 2018-09-07 20:53 | NUR ---
PT STATES HE HAS TO HAVE A BM PT UP OUT OF BED TO BATHROOM WITH SITTER
[2018-09-07 20:54] LABS: URINE AMPHETAMINE SCREEN NEGATIVE (Neg); URINE BARBITUATE SCREEN NEGATIVE (Neg); URINE BENZODIAZEPINES SCREEN POSITIVE (Neg); URINE CANNABINOID SCREEN POSITIVE (Neg); URINE COCAINE SCREEN NEGATIVE (Neg); URINE METHADONE SCREEN POSITIVE (Neg); URINE OPIATE SCREEN NEGATIVE (Neg); URINE PHENCYCLIDINE SCREEN NEGATIVE (Neg)
--- NOTE | 2018-09-07 21:01 | NUR ---
BED LINEN CHANGED
--- NOTE | 2018-09-07 22:21 | NUR ---
pt sleeping in bed on back , arosable upon touch
--- NOTE | 2018-09-07 23:18 | NUR ---
PT AMBULATED TO RESTROOM WITH TECH ASSIST - BACK TO BED NOW AND SNACKS GIVEN
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
--- NOTE | 2018-09-07 23:57 | NUR ---
PT UP OUT OF BED TO WALK TO BATHROOM WITH TECH
--- NOTE | 2018-09-08 01:04 | NUR ---
PT SLEEPING PEACEFULLY ON BACK .
[2018-09-08 02:34] VITALS: BP 121/72
--- NOTE | 2018-09-08 02:35 | NUR ---
PT UP OUT OF BED TO BATHROOM WITH SITTER WITH STEADY GAIT
--- NOTE | 2018-09-08 03:30 | NUR ---
PT UP OUT OF BED TO BATHROOM WALKING WITH STEADY GATE
--- NOTE | 2018-09-08 04:58 | NUR ---
PATIENT BACK TO SLEEP IN BED . LYING ON HIS BACK RESTING COMFORTBALY NO COMPLAINTS
--- NOTE | 2018-09-08 06:09 | NUR ---
PT SLEEPING WITH DENTURES HALF IN MOUTH. AWOKE PT TO PUT DENTURES BACK IN . PT ASKING FOR FOOD AND CONCERNED ABOUT HIS AM APPT WITH "DR NERI IN [place] BETWEEN 7-8 FOR HIS MEDICATION DOSE THIS AM " EDUCATED PT THAT IT WAS 0610 AND REPORT WOULD BE GIVEN TO NEXT SHIFT ABOUT HIS CONCERNS . PT VERBALIZED " THAT WOULD BE HELPFUL THANK YOU "
--- NOTE | 2018-09-08 06:18 | NUR ---
PT BACK UP TO THE BATHROOM WITH TECH,, TECH STATED IT SOUNDS LIKE HE WAS HAVING BM .
--- NOTE | 2018-09-08 07:16 | NUR ---
Pt moved from main ER to overflow area. Alert and oriented, pleasant and cooperative. Endorses SI and depression. Tired and went to sleep.
--- NOTE | 2018-09-08 07:20 | NUR ---
Pt moved to overflow area from main ER. Alert and sitting on edge of bed. Needs redirection but cooperative. Appears depressed, yet wants help. Wants to make phone calls later in morning.
[2018-09-08] MEDS ORDERED: DIAZ2TAB PO (08:25)
--- NOTE | 2018-09-08 08:49 | NUR ---
PACKET FAXED TO [facility]
[2018-09-08] MEDS ORDERED: cyclobenzaprine 10mg tablet PO PRN (09:00)
[2018-09-08] MEDS ORDERED: methadone 10mg tablet PO SCH (10:00)
[2018-09-08] MEDS ORDERED: diazepam 2mg tablet PO SCH (13:00)
[2018-09-08] MEDS ORDERED: hydrOXYzine 25 MG tablet PO SCH (21:00)
[2018-09-09] MEDS ORDERED: pantoprazole 40mg Tablet.DR PO SCH (07:30)
[2018-09-09] MEDS ORDERED: CITALOpram 10mg tablet PO SCH (08:00)
== END 2018-09-08 12:32 | disposition home or self-care (01) ==
LOC: ER 16:48
DX: F31.9 Bipolar disorder, unspecified (principal); F41.0 Panic disorder [episodic paroxysmal anxiety]; F29 Unspecified psychosis not due to a substance or known physiological condition; F41.9 Anxiety disorder, unspecified; J44.9 Chronic obstructive pulmonary disease, unspecified; G89.29 Other chronic pain; M19.90 Unspecified osteoarthritis, unspecified site; Z88.6 Allergy status to analgesic agent; Z88.8 Allergy status to other drugs, medicaments and biological substances; Z79.899 Other long term (current) drug therapy; Z86.718 Personal history of other venous thrombosis and embolism; Z86.19 Personal history of other infectious and parasitic diseases; Z86.69 Personal history of other diseases of the nervous system and sense organs; Z87.19 Personal history of other diseases of the digestive system; Z86.711 Personal history of pulmonary embolism; Z98.890 Other specified postprocedural states
CPT/HCPCS: 36415; 80053; 80305; 80320; 80329; 81003; 84443; 85025; 99284

== ENCOUNTER 2018-09-21 11:39 | Emergency (ER) | payer MEDICAID, OTHER ==
[~2018-09-21] VITALS: Ht 182.9 cm; Wt 71.0 kg
[~2018-09-21 11:39] MED LIST changes: -BISM-64 PO; -CLON-371 PO; +DIAZ2TAB PO
--- NOTE | 2018-09-21 11:54 | NUR ---
Unknown bottle of small round addie pills with pt upon arrival. EMS states that they believe to be diazepam as pt has Rx for the mdeication, and the appearance of pills were cross referenced in a drug guide.
[2018-09-21] MEDS ORDERED: ipratropium/albuterol 3ml nebule NEB ONE (12:05)
[2018-09-21 12:25] LABS: BASOPHILS % (AUTO) 0.6 % (0-1); EOSINOPHILS # (AUTO) 0.2 X10'3 (0-0.9); EOSINOPHILS % (AUTO) 2.7 % (0-6); HEMATOCRIT 38.8 % (42.0-52.0); HEMOGLOBIN 13.1 g/dl (14.0-17.9); LYMPHOCYTES # (AUTO) 1.6 X10'3 (1.1-4.8); LYMPHOCYTES % (AUTO) 26.1 % (21-51); MEAN CORPUSCULAR HGB CONC 33.7 g/dL (33.0-36.5); MEAN CORPUSCULAR VOLUME 97.9 FL (78-98); MEAN PLATELET VOLUME 7.5 FL (7.4-10.4); MONOCYTES # (AUTO) 0.6 X10'3 (0-0.9); MONOCYTES % (AUTO) 10.1 % (2-12); NEUTROPHILS # (AUTO) 3.8 X10'3 (1.8-7.7); NEUTROPHILS % (AUTO) 60.5 % (42-75); PLATELET COUNT 131 X10'3 (140-440); RED BLOOD COUNT 3.96 X10'6 (4.70-6.10); RED CELL DISTRIBUTION WIDTH 14.8 % (11.5-14.5); WHITE BLOOD COUNT 6.3 X10'3 (4.5-11.0)
[2018-09-21] MEDS ORDERED: TRAZ-251 PO (12:32)
[2018-09-21] MEDS ORDERED: CLON1TAB12 PO (12:32)
[2018-09-21] MEDS ORDERED: ESCI20TA38 PO (12:32)
--- NOTE | 2018-09-21 12:32 | NUR ---
back from ct no distress noted. on RA 98%
[2018-09-21 12:36] LABS: AMMONIA < 10 UMOL/L (11-32)
[2018-09-21 12:37] LABS: PARTIAL THROMBOPLASTIN TIME 28 SECONDS (22-32)
[2018-09-21 12:40] LABS: ALANINE AMINOTRANSFERASE 37 U/L (12-78); ALBUMIN 3.5 G/DL (3.4-5.0); ALKALINE PHOSPHATASE 152 IU/L (46-116); ANION GAP 4 (8-16); ASPARTATE AMINO TRANSFERASE 38 U/L (10-37); BILIRUBIN,TOTAL 0.7 MG/DL (0.1-1.0); BLOOD UREA NITROGEN 11 MG/DL (7-18); BUN/CREATININE RATIO 11.6 (5.4-32.0); CALCIUM 8.6 MG/DL (8.5-10.1); CHLORIDE 109 MMOL/L (99-107); CREATININE 0.95 MG/DL (0.60-1.10); GLUCOSE 100 MG/DL (70-104); POTASSIUM 4.2 MMOL/L (3.5-5.1); SODIUM 142 MMOL/L (135-145); TOTAL CARBON DIOXIDE 28.7 MMOL/L (24-32); TOTAL PROTEIN 7.1 G/DL (6.4-8.2); eGFR 80 ML/MIN
[2018-09-21 12:42] LABS: LACTIC SEPSIS 0.6 MMOL/L (0.4-2.0)
[2018-09-21 12:44] LABS: ETHANOL < 0.010 GM/DL (0.0-0.010); TROPONIN I < 0.04 NG/ML (0.0-0.05)
[2018-09-21 14:12] VITALS: BP 126/74
--- NOTE | 2018-09-21 14:25 | NUR ---
called the mission [phone] , and pt is allowed to go to the mission, primary TYLER bauman informed
[2018-09-21 14:30] LABS: CLARITY,URINE CLEAR (Clear); COLOR,URINE YELLOW (Yellow); GLUCOSE, URINE NEGATIVE (Neg); KETONES,URINE NEGATIVE (Neg); LEUKOCYTE ESTERASE ,URINE NEGATIVE (Neg); NITRITES, URINE NEGATIVE (Neg); OCCULT BLOOD,URINE NEGATIVE (Neg); PH,URINE 5.5 (4.8-8.0); PROTEIN,URINE NEGATIVE (Neg); UROBILINOGEN,URINE 0.2 E.U/dL (0.2-1.0)
[2018-09-21 14:31] LABS: UA COLLECTION TYPE VOIDED
[2018-09-21 14:44] LABS: URINE AMPHETAMINE SCREEN NEGATIVE (Neg); URINE BARBITUATE SCREEN NEGATIVE (Neg); URINE BENZODIAZEPINES SCREEN POSITIVE (Neg); URINE CANNABINOID SCREEN NEGATIVE (Neg); URINE COCAINE SCREEN NEGATIVE (Neg); URINE METHADONE SCREEN POSITIVE (Neg); URINE OPIATE SCREEN NEGATIVE (Neg); URINE PHENCYCLIDINE SCREEN NEGATIVE (Neg)
--- NOTE | 2018-09-21 14:50 | NUR ---
EMELI WITH CAMP DINING ROOM ATTENDANT CALLED BACK, INFORMED PT ALLOWED TO GO TO THE [facility] NO NEED FOR CAMP DINING ROOM ATTENDANT AT THIS TIME.
== END 2018-09-21 15:11 | disposition home or self-care (01) ==
LOC: ER 11:40
DX: R41.82 Altered mental status, unspecified (principal); F13.90 Sedative, hypnotic, or anxiolytic use, unspecified, uncomplicated; R06.02 Shortness of breath; J44.9 Chronic obstructive pulmonary disease, unspecified; G89.29 Other chronic pain; F41.9 Anxiety disorder, unspecified; F31.9 Bipolar disorder, unspecified; F20.9 Schizophrenia, unspecified; F11.90 Opioid use, unspecified, uncomplicated; Z86.69 Personal history of other diseases of the nervous system and sense organs; Z86.19 Personal history of other infectious and parasitic diseases; Z86.718 Personal history of other venous thrombosis and embolism; Z98.890 Other specified postprocedural states; Z89.021 Acquired absence of right finger(s); Z88.5 Allergy status to narcotic agent; Z88.8 Allergy status to other drugs, medicaments and biological substances; Z79.899 Other long term (current) drug therapy
CPT/HCPCS: 36415; 70450; 71045; 80053; 80305; 80320; 81003; 82140; 83605; 84484; 85025; 85610; 85730; 87040; 93005; 94640; 94760; 99284

== ENCOUNTER 2018-09-23 17:33 | Emergency (ER) | payer MEDICAID, OTHER ==
[~2018-09-23] VITALS: Ht 182.9 cm; Wt 77.3 kg
[~2018-09-23 17:33] MED LIST changes: +CLON1TAB12 PO; -CYCL10TA26 PO; -DIAZ2TAB PO; +ESCI20TA38 PO; -ESCI5TAB PO; -PANT40SU2 PO; +TRAZ-251 PO
[2018-09-23 17:41] VITALS: BP 137/46
[2018-09-23] MEDS ORDERED: ESCI10TA PO (19:36)
[2018-09-23] MEDS ORDERED: HYDR-3686 PO (19:41)
[2018-09-24] MEDS ORDERED: METH5TAB PO (10:53)
== END 2018-09-23 20:57 | disposition home or self-care (01) ==
LOC: ER 17:34
DX: S80.12XA Contusion of left lower leg, initial encounter (principal); S80.11XA Contusion of right lower leg, initial encounter; F32.9 Major depressive disorder, single episode, unspecified; F11.90 Opioid use, unspecified, uncomplicated; J44.9 Chronic obstructive pulmonary disease, unspecified; G89.29 Other chronic pain; F41.9 Anxiety disorder, unspecified; Z86.69 Personal history of other diseases of the nervous system and sense organs; Z86.19 Personal history of other infectious and parasitic diseases; Z86.718 Personal history of other venous thrombosis and embolism; Z98.890 Other specified postprocedural states; Z89.021 Acquired absence of right finger(s); Z59.0 Homelessness; X58.XXXA Exposure to other specified factors, initial encounter; Y93.89 Activity, other specified; Y92.89 Other specified places as the place of occurrence of the external cause; Y99.8 Other external cause status
CPT/HCPCS: 99284

== ENCOUNTER 2018-09-24 09:50 | Emergency (ER) | payer MEDICAID, OTHER ==
[~2018-09-24] VITALS: Ht 182.9 cm; Wt 77.2 kg
[~2018-09-24 09:50] MED LIST changes: +ESCI10TA PO
--- NOTE | 2018-09-24 10:30 | NUR ---
Pt. escorted to bed 25 by security. BIB [employer] for SI. Pt. has a 5150 written. Pt. reportedly stated he would walk into traffic on the freeway. Pt. was discharged from ED Overflow last noc. Pt. appears sleepy and falls asleep when talking to RN.
[2018-09-24] MEDS ORDERED: METH5TAB PO (10:53)
[2018-09-24 10:55] LABS: URINE AMPHETAMINE SCREEN NEGATIVE (Neg); URINE BARBITUATE SCREEN NEGATIVE (Neg); URINE BENZODIAZEPINES SCREEN POSITIVE (Neg); URINE CANNABINOID SCREEN NEGATIVE (Neg); URINE COCAINE SCREEN NEGATIVE (Neg); URINE METHADONE SCREEN POSITIVE (Neg); URINE OPIATE SCREEN NEGATIVE (Neg); URINE PHENCYCLIDINE SCREEN NEGATIVE (Neg)
[2018-09-24 11:12] LABS: BASOPHILS % (AUTO) 0.4 % (0-1); EOSINOPHILS # (AUTO) 0.1 X10'3 (0-0.9); EOSINOPHILS % (AUTO) 1.9 % (0-6); HEMATOCRIT 39.1 % (42.0-52.0); HEMOGLOBIN 13.1 g/dl (14.0-17.9); LYMPHOCYTES # (AUTO) 1.4 X10'3 (1.1-4.8); MEAN CORPUSCULAR HEMOGLOBIN 32.5 PG (27.0-31.0); MEAN CORPUSCULAR HGB CONC 33.5 g/dL (33.0-36.5); MEAN PLATELET VOLUME 7.5 FL (7.4-10.4); MONOCYTES # (AUTO) 0.5 X10'3 (0-0.9); MONOCYTES % (AUTO) 11.5 % (2-12); NEUTROPHILS # (AUTO) 2.5 X10'3 (1.8-7.7); NEUTROPHILS % (AUTO) 55.2 % (42-75); PLATELET COUNT 120 X10'3 (140-440); RED BLOOD COUNT 4.03 X10'6 (4.70-6.10); RED CELL DISTRIBUTION WIDTH 14.9 % (11.5-14.5); WHITE BLOOD COUNT 4.5 X10'3 (4.5-11.0)
[2018-09-24 11:28] LABS: ALANINE AMINOTRANSFERASE 37 U/L (12-78); ALBUMIN 3.5 G/DL (3.4-5.0); ALKALINE PHOSPHATASE 142 IU/L (46-116); ANION GAP 6 (8-16); ASPARTATE AMINO TRANSFERASE 50 U/L (10-37); BILIRUBIN,TOTAL 0.4 MG/DL (0.1-1.0); BLOOD UREA NITROGEN 9 MG/DL (7-18); BUN/CREATININE RATIO 9.5 (5.4-32.0); CALCIUM 8.1 MG/DL (8.5-10.1); CHLORIDE 111 MMOL/L (99-107); CREATININE 0.95 MG/DL (0.60-1.10); GLUCOSE 70 MG/DL (70-104); POTASSIUM 3.9 MMOL/L (3.5-5.1); SODIUM 147 MMOL/L (135-145); TOTAL CARBON DIOXIDE 29.7 MMOL/L (24-32); eGFR 80 ML/MIN
[2018-09-24 11:37] LABS: ETHANOL < 0.010 GM/DL (0.0-0.010)
--- NOTE | 2018-09-24 15:20 | NUR ---
Kyler SCOTT talking with patient.
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
[2018-09-24 19:55] LABS: CLARITY,URINE CLEAR (Clear); COLOR,URINE AMBER (Yellow); GLUCOSE, URINE NEGATIVE (Neg); KETONES,URINE NEGATIVE (Neg); LEUKOCYTE ESTERASE ,URINE NEGATIVE (Neg); NITRITES, URINE NEGATIVE (Neg); OCCULT BLOOD,URINE NEGATIVE (Neg); PH,URINE 5.5 (4.8-8.0); PROTEIN,URINE NEGATIVE (Neg); UROBILINOGEN,URINE 0.2 E.U/dL (0.2-1.0)
[2018-09-24 19:59] LABS: UA COLLECTION TYPE CLN CATCH MIDSTREAM
[2018-09-24] MEDS: clonazePAM 0.5mg tablet PO SCH (20:00)
[2018-09-24] MEDS: methadone 5mg tablet PO SCH (20:00)
[2018-09-24] MEDS: traZODone 50mg tablet PO SCH (20:05)
[2018-09-24] MEDS: hydrOXYzine 25 MG tablet PO SCH (21:00)
--- NOTE | 2018-09-24 21:09 | NUR ---
Patient is sleeping comfortably in a supine position with even, unlabored breathing.
--- NOTE | 2018-09-24 22:03 | NUR ---
Patient continues to sleep.
--- NOTE | 2018-09-24 22:41 | NUR ---
UA results faxed to [facility] office as per request. Unable to confirm receipt of lab results.
--- NOTE | 2018-09-24 22:47 | NUR ---
Patient continues sleeping in a supine position with even, unlabored breathing.
--- NOTE | 2018-09-25 00:12 | NUR ---
Patient is waving his arms about in the air but appears to remain sleeping.
--- NOTE | 2018-09-25 01:32 | NUR ---
Patient continues to sleep.
--- NOTE | 2018-09-25 03:00 | NUR ---
Patient continues to sleep.
[2018-09-25] MEDS: clonazePAM 0.5mg tablet PO SCH ×2 (09:04→21:14)
[2018-09-25] MEDS: methadone 5mg tablet PO SCH ×2 (09:04→21:15)
[2018-09-25] MEDS: citalopram 20mg tablet PO SCH (09:04)
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
--- NOTE | 2018-09-25 17:12 | NUR ---
Patient resting with eyes closed on his back.
[2018-09-25] MEDS: traZODone 50mg tablet PO SCH (21:14)
[2018-09-25] MEDS: hydrOXYzine 25 MG tablet PO SCH (21:15)
--- NOTE | 2018-09-26 01:20 | NUR ---
pt continues to sleep, no s/s of distress noted.
--- NOTE | 2018-09-26 02:35 | NUR ---
pt continues to sleep, no s/s of distress noted.
--- NOTE | 2018-09-26 05:41 | NUR ---
pt continues to sleep, no s/s of distress noted
[2018-09-26 06:04] VITALS: BP 119/56
[2018-09-26] MEDS: methadone 5mg tablet PO SCH (08:25)
[2018-09-26] MEDS: citalopram 20mg tablet PO SCH (08:25)
[2018-09-26] MEDS: clonazePAM 0.5mg tablet PO SCH (08:25)
== END 2018-09-26 09:30 ==
LOC: ER 09:50
DX: R45.851 Suicidal ideations (principal); J44.9 Chronic obstructive pulmonary disease, unspecified; M19.90 Unspecified osteoarthritis, unspecified site; F41.9 Anxiety disorder, unspecified; F31.9 Bipolar disorder, unspecified; F20.9 Schizophrenia, unspecified; F11.90 Opioid use, unspecified, uncomplicated; G89.29 Other chronic pain; Z86.711 Personal history of pulmonary embolism; Z86.718 Personal history of other venous thrombosis and embolism; Z86.19 Personal history of other infectious and parasitic diseases; Z98.890 Other specified postprocedural states; Z88.5 Allergy status to narcotic agent; Z88.8 Allergy status to other drugs, medicaments and biological substances; Z79.899 Other long term (current) drug therapy; Z59.0 Homelessness
CPT/HCPCS: 36415; 80053; 80305; 80320; 81003; 84443; 85025; 99285; Q0177; Z7610

== ENCOUNTER 2022-05-28 15:40 | Emergency (ER) | payer MEDICARE, MEDICAID ==
[~2022-05-28] VITALS: Ht 177.8 cm; Wt 86.4 kg
[~2022-05-28 15:40] MED LIST changes: -ESCI20TA38 PO; +ESCI20TA39 PO; +METH5TAB PO
[2022-05-28] MEDS ORDERED: HYDROcodone/acetaminophen 10/325mg tab PO ONE ×2 (16:15→18:15)
[2022-05-28] MEDS ORDERED: QUELT PO (16:51)
[2022-05-28] MEDS ORDERED: HYDR-3973 PO (16:51)
--- NOTE | 2022-05-28 17:11 | NUR ---
pt states "I have no allergy to norco"
--- NOTE | 2022-05-28 18:15 | NUR ---
Pt reporting 8/10 back pain, 1 hour after taking oral norco. RN notified SAGAR Rucker. Per JIMBO KEITH to order another dose of norco. RN ordered via [facility].
[2022-05-28 18:47] VITALS: BP 122/82
== END 2022-05-28 18:49 | disposition home or self-care (01) ==
LOC: ER 15:41
DX: R19.7 Diarrhea, unspecified (principal); M25.511 Pain in right shoulder; M54.9 Dorsalgia, unspecified; J44.9 Chronic obstructive pulmonary disease, unspecified; F31.9 Bipolar disorder, unspecified; Z88.5 Allergy status to narcotic agent; Z88.6 Allergy status to analgesic agent
CPT/HCPCS: 99284; A4340

== ENCOUNTER 2025-01-09 13:26 | Emergency (ER) | payer OTHER, MEDICARE ==
[~2025-01-09] VITALS: Ht 177.8 cm; Wt 79.0 kg
--- NOTE | 2025-01-09 13:37 | ELECTROCARDIOGRAPH REPORT ---
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 TROY Barrios Measurements Intervals [place] Rate: 71 P: 32 SC: 173 QRS: -68 QRSD: 130 T: 55 QT: 405 QTc: 441 Interpretive Statements Sinus rhythm Nonspecific IVCD with LAD Inferior infarct, old Baseline wander in lead(s) V1 Electronically Signed On 01-11-2025 16:51:[address] TROY Barrios Please click the below link to view image of tracing.
[2025-01-09 13:51] VITALS: TEMP 98.2
[2025-01-09 13:53] LABS: MEAN PLATELET VOLUME 7.7 FL (7.4-10.4); RED CELL DISTRIBUTION WIDTH 14.5 % (11.5-14.5)
[2025-01-09 14:13] LABS: CREATININE 0.91 MG/DL (0.60-1.10); PRO BRAIN NATRIURETIC PEPTIDE 166 PG/ML (0-125); TOTAL CARBON DIOXIDE 26.4 MMOL/L (24-32); eCRCL 78 ML/MIN; eGFR 82 ML/MIN
--- NOTE | 2025-01-09 14:20 | Physician Documentation ---
History of Present Illness ~ Chief Complaint: Chest Pain Stated Complaint: CP Time Seen by MD: 13:39 Primary Medical Doctor: none Mode of Arrival: EMS HPI In the year old male presents to the ED after stating that he fell yesterday striking his left chest states that he has left shoulder and chest pain secondary to injury. He has chronic rotator cuff injuries in his reporting chest pain with inspiration which is reproducible. Denies any nausea vomiting shortness a breath Tetanus within 5 Years?: No Allergies: Coded Allergies: codeine (Unverified Allergy, Severe, HIVES, 05/30/17) prednisone (Unverified Allergy, Intermediate, 05/30/17) ketorolac (Verified Allergy, Unknown, 03/04/18) Active Prescriptions See Medication Reconciliation Form. Medication Reconciliation Scheduled Clonazepam (Clonazepam), 0.5 TAB PO BID, (Reported) Escitalopram Oxalate (Escitalopram Oxalate), 1 TAB PO DAILY, (Reported) Escitalopram Oxalate (Lexapro), 1 TAB PO DAILY Hydroxyzine Hcl* (Atarax*), 2 TAB PO HS, (Reported) Methadone Hcl* (Dolophine Hcl*), 1 TAB PO BID, (Reported) Trazodone HCl (Trazodone HCl), 1 TAB PO HS, (Reported) Past Medical History Past Medical History: Headache, Seizures, COPD, Pulmonary Embolism, GI Bleed, Hepatitis C, Liver Disease, Chronic Pain, Chronic Back Pain, Deep Vein Thrombosis, Extremity Fracture, Osteoarthritis, Anxiety, Bipolar, Depression, Panic Disorder, Schizophrenia Past Surgical History: orthopedic surgeries, other Other Past Surgical History: 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 Physical Exam Vital Signs: Temperature: 98.2, Source: Oral, Heart Rate: 73, Respiratory Rate: 17, BP: 121/69, Pulse Oximetry: 96, Weight: 79.000 Oxygen Flow Rate: 0 Physical Exam General: Alert, no apparent distress. Respiratory: Lungs clear, no respiratory distress. Cardiovascular: Regular rate and rhythm, no murmurs. Extremities: Normal range of motion, no deformity. pain w/ ROM Neurologic: Oriented x4. Psychiatric: Normal mood and affect. Skin: Normal color, warm and dry. No edema, no ecchymosis. Progress Results/Orders Results/Orders Completed Orders - DIONY DIANE NP Hydrocodone/Apap 10/325 ([place] 10/325mg (01/09/25 14:00) Medications Received in ER Medications (Trade) Dose Ordered Sig/Tiffany Route PRN Reason Start Time Stop Time Status Last Admin Dose Admin ([place] 10/325mg tab) 1 tab ONCE ONCE PO 01/09/25 14:00 01/09/25 14:01 DC 01/09/25 14:24 1 TAB Vital Signs 01/09/25 01/09/25 01/09/25 13:32 13:51 13:57 Temp 98.2 98.2 Pulse 76 73 Resp 18 17 B/P (MAP) 121/69 121/69 (86) Pulse Ox 97 96 O2 Flow Rate 0 0 Laboratory Tests Test 01/09/25 13:42 White Blood Count 9.4 Red Blood Count 4.87 Hemoglobin 16.6 Hematocrit 47.9 Mean Corpuscular Volume 98.4 H Mean Corpuscular Hemoglobin 34.0 H Mean Corpuscular Hemoglobin Concent 34.6 Red Cell Distribution Width 14.5 Platelet Count 161 Mean Platelet Volume 7.7 Neutrophils (%) (Auto) 77.8 H Lymphocytes (%) (Auto) 13.5 L Monocytes (%) (Auto) 7.4 Eosinophils (%) (Auto) 0.8 Basophils (%) (Auto) 0.5 Neutrophils # (Auto) 7.3 Lymphocytes # (Auto) 1.3 Monocytes # (Auto) 0.7 Eosinophils # (Auto) 0.1 Basophils # (Auto) 0.0 CBC Comment Sodium Level 143 Potassium Level 3.9 Chloride Level 106 Carbon Dioxide Level 26.4 Anion Gap 11 Blood Urea Nitrogen 10 Creatinine 0.91 Estimated GFR/1.73 m2 82 BUN/Creatinine Ratio 11.0 Glucose Level 137 H Calcium Level 8.8 Troponin I High Sensitivity 7 Pro-B-Type Natriuretic Peptide 166 H Albumin 4.2 Chemistry Comments Medical Decision Making Additional information obtaine: old records Findings Patient's EKG x-ray and laboratory values were all reassuring showing no signs of acute cardiac events no signs of fractures per my interpretation of the patient's chest x-ray. I explained these findings with the patient and he said that he wanted a a shot of morphine for the road. I told him that that has not appropriate current condition. He continued to argue saying that a doctor would do it not a PA he said that he does have gabapentin and ibuprofen at home to treat pain. Advised the patient if he is not satisfied with the pain management that he is receiving the a pain clinic maybe his best avenue for further treatment. Patient then requested a taxi for transfer Differential Dx:Considerations: Include: Chest wall contusion, Flail chest, Myocardial contusion, Pneumothorax, Pulmonary contusion, Rib fracture, Renal contusion, Splenic fracture, Tension pneumothorax, Other Departure Disposition: HOME / SELF CARE / HOMELESS Impression: Primary Impression: Tenderness of chest wall Condition: Stable Discharge Instructions: Chest Wall Pain Additional Instructions: go to the pain clinic for further pain management Referrals: NO PRIMARY CARE PROVIDER (PCP) Signature Scribe Signature: 6 Attestation: Scribed for Diony Diane Tsa Screener by Diony Fonseca NP . 01/09/25 14:41 DINOY DIANE NP Jan 09, 2025 14:20
[2025-01-09] MEDS: HYDROcodone/acetaminophen 10/325mg tab PO ONE (14:24)
--- NOTE | 2025-01-09 14:34 | RADIOLOGY REPORT ---
CHEST RADIOGRAPH Indication: CP Technique: Single frontal view of the chest was obtained COMPARISON: CHEST,SINGLE VIEW on DOS: 05/30/22 FINDINGS: Lines and Tubes: None Lungs: Clear Pleura: No effusion. No pneumothorax. Cardiomediastinal contours: Unremarkable Bones: Unremarkable IMPRESSION: No acute disease.
[2025-01-09 14:55] VITALS: BP 117/75; PULSE 70; RESP 16; O2SAT 96
== END 2025-01-09 14:57 | disposition home or self-care (01) ==
LOC: ER 13:26
DX: R07.89 Other chest pain (principal); M25.512 Pain in left shoulder; F41.9 Anxiety disorder, unspecified; F31.9 Bipolar disorder, unspecified; F20.9 Schizophrenia, unspecified; G89.29 Other chronic pain; M19.90 Unspecified osteoarthritis, unspecified site; F11.90 Opioid use, unspecified, uncomplicated; J44.9 Chronic obstructive pulmonary disease, unspecified; Z79.899 Other long term (current) drug therapy; Z86.19 Personal history of other infectious and parasitic diseases; Z86.711 Personal history of pulmonary embolism; Z86.718 Personal history of other venous thrombosis and embolism; Z88.5 Allergy status to narcotic agent; Z88.8 Allergy status to other drugs, medicaments and biological substances; Z98.890 Other specified postprocedural states
CPT/HCPCS: 36415; 71045; 80048; 83880; 84484; 85025; 93005; 99285